=== PATIENT | male | born 1950 | race Caucasian/White ===

== ENCOUNTER 2023-12-21 19:12 | Emergency (ER) | payer MEDICARE, OTHER ==
[~2023-12-21] VITALS: Ht 172.7 cm; Wt 82.6 kg
[2023-12-21] MEDS ORDERED: PANTOPRAZOLE 40 MG VIAL ONE (20:23)
[2023-12-21] MEDS ORDERED: BACLOFEN (10 MG) 10 MG TABLET ONE (20:24)
[2023-12-21] MEDS ORDERED: METOCLOPRAMIDE HCL 10 MG/2 ML VIAL ONE (20:24)
[2023-12-21] MEDS: METOCLOPRAMIDE HCL 10 MG/2 ML VIAL IV ONE (20:30)
[2023-12-21] MEDS: PANTOPRAZOLE 40 MG VIAL IV ONE (20:30)
[2023-12-21] MEDS: BACLOFEN (10 MG) 10 MG TABLET PO ONE (20:30)
[2023-12-21] MEDS ORDERED: BACL10TA PO (21:24)
[2023-12-21] MEDS ORDERED: METO-295 PO (21:24)
[2023-12-21] MEDS ORDERED: PANT20TA2 PO (21:24)
[2023-12-21 21:34] VITALS: BP 136/73; TEMP 98; O2SAT 99
== END 2023-12-21 21:34 | disposition home or self-care (01) ==
LOC: ER 19:18
DX: R06.6 Hiccough (principal); Z79.899 Other long term (current) drug therapy
CPT/HCPCS: 99284; 96374; 96375; J2765; C9113